=== PATIENT | female | born 1935 | race Caucasian/White ===

== ENCOUNTER 2017-08-27 11:24 | Observation (INO) ==
[2017-08-27] MEDS ORDERED: IOPAMIDOL 100 ML BOTTLE IV ONE (11:25)
--- NOTE | 2017-08-27 12:06 | Emergency Department Note ---
SOB HPI - General Chief Complaint: Shortness of Breath/Dyspnea Stated Complaint: cough, labored breathing Time Seen by Provider: 08/27/17 12:02 Source: patient, family Mode of arrival: wheelchair Limitations: no limitations - History of Present Illness This very pleasant 81-year-old female comes to the ER with upper respiratory symptoms, shortness of breath and decreased energy. She had onset of sinus nasal and chest viral type of symptoms beginning 4 days ago but was worse 3 days ago and she has been in bed since then. She describes severe fatigue just walking across the room but she is not sure if it specifically shortness of breath. She has a remote history, one year ago of some form of lung condition or disease with little nodules. She was seen at [facility] and a biopsy was done which ruled out sarcoidosis and cancer and is was thought that she had a type of an infection for which she was given antibiotic for at least a few months and then prednisone for 3 months. She denies fevers but has felt some hot and cold chills but no specific sweats. Her cough has been quite bad and occasional rare wheeze with some phlegm but she has not looked at the color of the phlegm. She has a history of chronic A. fib anticoagulated with a full dose of aspirin daily only. This has been long-term. - Related Data Home Medications Medication Instructions Recorded Confirmed Aspirin [Ecotrin] 325 mg PO DAILY 12/10/14 01/29/17 cholecalciferol (vitamin D3) 1,000 1,000 unit PO QDAY cap 11/15/15 01/29/17 unit capsule magnesium oxide 400 mg capsule 400 mg PO QDAY 11/15/15 01/29/17 sennosides 8.6 mg tablet 8.6 mg PO QDAY PRN tab 11/15/15 01/29/17 Previous Rx's Medication Instructions Recorded omeprazole 20 mg capsule,delayed 20 mg PO QDAY 90 Days #90 cap 07/25/16 release metoprolol succinate ER 25 mg See Label Instructions .ROUTE 08/20/16 tablet,extended release 24 hr .COMPLEX #270 tab tolterodine ER 4 mg 4 mg PO BID 14 Days #28 cap 12/13/16 capsule,extended release 24 hr Sulfamethoxazole/Trimethoprim 1 each PO BID #14 tab 01/29/17 [Bactrim Ds Tablet] Cephalexin [Keflex] 500 mg PO BID #10 cap 11/16/17 Furosemide [Lasix] 20 mg PO DAILY #20 tab 02/28/17 Potassium Chloride [Kdur] 20 meq PO BIDCC #40 tab 02/28/17 Allergies Allergy/AdvReac Type Severity Reaction Status Date / Time amlodipine [From Norvasc] Allergy Unknown Unknown Verified 08/27/17 11:31 atorvastatin [From Lipitor] Allergy Unknown Cough Verified 08/27/17 11:31 dabigatran etexilate Allergy Unknown Gastrointestinal Verified 08/27/17 11:31 [From Pradaxa] Upset isosorbide [From Imdur] Allergy Unknown Dizziness Verified 08/27/17 11:31 lovastatin [From Mevacor] Allergy Unknown Unknown Verified 08/27/17 11:31 simvastatin [From Zocor] Allergy Unknown Unknown Verified 08/27/17 11:31 Review of Systems Review of Systems: Some almost chest discomfort with activity. No new palpitations. No abdominal pain, nausea, vomiting constipation or hematochezia. Had a few episodes of diarrhea for about a half a day beginning 2 days ago. No dysuria. No back pain. No rashes. Headache for a couple of days. Has generalized weakness. No dizziness. Has chronic imbalance. Recent anxiety and stressors related to her 's diagnosis of a glioblastoma just 4 days ago. Denies depression specific type of symptoms. Past Medical History - Past Medical History Medical history: Reports: atrial fibrillation (Chronic, on 1 full dose aspirin daily), cancer (Breast cancer. 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 Peripheral neuropathy.). Denies: coronary artery disease, CVA, DM, hypertension, myocardial infarction, TIA Psychiatric history: Reports: anxiety (New, acute related to 's health.) . Denies: depression [employer] history: Reports: non-contributory Surgical history ED: Reports: cataract (Bilateral.), orthopedic, other (Neck surgery. Back fusion L4-5.), other (Lung biopsy.) LMP comments: post menopausal - Social History smoking status: Never smoker Alcohol use: Reports: Rarely (May be a Supriya once a quarter at the most.) Drug use: Reports: none. Denies: marijuana Physical Exam Limitations: no limitations General appearance: alert, in no apparent distress, malaise Eye: Present: EOMI (Mild.), other (Mostly rests and talks with her eyes closed.) ENT: mucous membranes moist, nasal congestion (Very mild nasal tones.), hoarse voice (Very mild) Neck: Absent: lymphadenopathy, thyromegaly Respiratory: Present: normal lung sounds bilaterally, other (Occasional harsh medium to deep cough.). Absent: respiratory distress, wheezes, stridor, accessory muscle use, prolonged expiratory phase Cardiovascular: Present: irregular rhythm. Absent: bradycardia, tachycardia, systolic murmur, diastolic murmur Abdominal: Present: soft. Absent: distention, tenderness, guarding, rebound, tenderness at [place], mass Extremities: Present: tenderness (Anterior lower [place] area bilaterally.), pretibial edema (Trace bilaterally.). Absent: pedal edema, calf tenderness Back: Absent: tenderness, CVA tenderness (R), CVA tenderness (L), spinous process tenderness Neurological: Present: alert, oriented X3 Psychiatric: Present: flat affect (Mildly.) Skin: Present: warm, dry Course Course Narrative: 11:47 AM Probable mild URI/bronchitis type of the pattern but with some significant symptoms will need to do a fairly thorough workup. Could also be exacerbated by the stress of her recent 's diagnosis of a significant brain cancer. 1:40 PM labs include a normal troponin. Interesting bilirubin of 2.6 with mildly elevated liver function tests at 52 and 46. Alk phos trace elevated also at 133. Pro-calcitonin negative. D-dimer interestingly elevated at 1.17. White count elevated at 14.1 but no anemia. This does appear to include a left shift. CRP mildly elevated at 11.4. ProBNP markedly elevated at 4084 ECG similar to previous except for mild or subtle flattening of the T waves in the aVL V5 and V6 and I. With the elevated d-dimer on the background of bedrest will go ahead and do a CT angiogram of her chest. Vital Signs Temperature 97.6 F 08/27/17 11:26 Pulse Rate 82 08/27/17 11:26 Respiratory Rate 24 H 08/27/17 11:26 Blood Pressure 133/73 08/27/17 11:26 Pulse Oximetry (%) 97 08/27/17 11:26 Temperature 97.6 F 08/27/17 11:26 Pulse Rate 83 08/27/17 16:30 Respiratory Rate 21 08/27/17 16:30 Blood Pressure 132/80 08/27/17 16:30 Pulse Oximetry (%) 100 08/27/17 16:30 Shortness of Breath/Dyspnea - [facility] Narrative Medical decision making narrative: Patient had a 4 hour repeat troponin that was negative. Ultrasound because of her elevated liver function test did not demonstrate any acute findings. There was mild gallbladder wall thickening and a nonobstructing stone but no other specific findings. I have discussed case with Dr. Raymond with considerations for diuresis, arrangement for diagnosis or follow-up of sleep apnea, echocardiogram, etc. He kindly accepted care for patient's admission. Urine was mildly positive and patient was given 1 g of ceftriaxone. She could have simply some chronic underlying processes such as sleep apnea causing right heart failure and a recent viral syndrome. However, combination of the multiple diagnoses and findings puts her at risk of decompensation and significant other medical complicating concerns and it is best for at least a brief period of observation and treatment. - Lab Data Result diagrams: 08/27/17 12:12 08/27/17 12:11 Lab Results 08/27/17 08/27/17 08/27/17 Range/Units 12:04 12:11 12:11 WBC (4.5-11.0) K/mcL RBC (4.00-5.20) M/mcL Hgb (12.0-15.0) g/dL Hct (36.0-48.0) % MCV (80.0-100.0) fL MCH (26.0-34.0) pg MCHC (31.0-36.0) g/dL RDW (11.5-14.5) % Plt Count (140-440) K/mcL MPV (7.4-10.4) fL Gran % (38.0-78.0) % Lymph % (Auto) (15.5-49.0) % Stevens % (Auto) (1.0-12.0) % Eos % (Auto) (0.0-7.0) % Baso % (Auto) (0.0-2.0) % Gran # (1.8-8.0) K/mcL Lymph # (Auto) (1.5-4.8) K/mcL Stevens # (Auto) (0.1-0.9) K/mcL Eos # (Auto) (0.0-0.7) K/mcL Baso # (Auto) (0.0-0.3) K/mcL PT (11.9-14.5) sec INR (0.9-1.1) D-Dimer (0.00-0.40) ug/ml Sodium 137 (133-145) mmol/L Potassium 4.3 (3.3-5.1) mmol/L Chloride 102 (96-108) mmol/L Carbon Dioxide 22 (22-30) mmol/L Anion Gap 13.0 (8-16) BUN 22 (8-23) mg/dl Creatinine 1.0 (0.6-1.1) mg/dl GFR Calculation 53 Glucose 107 H (70-105) mg/dL Calcium 9.0 (8.6-10.4) mg/dl Total Bilirubin 2.6 H (0.0-1.0) mg/dL AST 52 H (0-37) U/l ALT 46 H (0-40) U/l Alkaline Phosphatase 133 H (39-117) U/L Troponin T < 0.01 (0-0.03) ng/ml C-Reactive Protein 11.4 H (0.0-0.8) mg/dl NT-Pro-B Natriuret Pep 4084.0 H (0-450) pg/ml Total Protein 6.9 (5.9-8.4) gm/dL Albumin 3.8 (3.2-5.2) gm/dL Globulin 3.1 (2.2-3.7) gm/dL Albumin/Globulin Ratio 1.2 (1.0-2.3) Procalcitonin 0.10 (<0.10) ng/mL Urine Color Urine Appearance Urine pH (5.0-9.0) Ur Specific Distant (1.000-1.035) Urine Protein (NEG) mg/dL Urine Glucose (UA) (NEG) mg/dL Urine Ketones (NEG) mg/dL Urine Occult Blood (<0.03) mg/dL Urine Nitrate (NEG) Urine Bilirubin (NEG) mg/dL Urine Urobilinogen (NEG) mg/dL Ur Leukocyte Esterase (NEG) /uL Urine RBC (0-1) /hpf Urine WBC (0-4) /hpf Ur Squamous Epith Cells (0-4) /hpf Urine Bacteria (0) /hpf Ur Culture Indicated? 08/27/17 08/27/17 08/27/17 Range/Units 12:12 12:12 13:30 WBC 14.1 H (4.5-11.0) K/mcL RBC 4.39 (4.00-5.20) M/mcL Hgb 13.6 (12.0-15.0) g/dL Hct 41.0 (36.0-48.0) % MCV 93.4 (80.0-100.0) fL MCH 30.9 (26.0-34.0) pg MCHC 33.0 (31.0-36.0) g/dL RDW 16.0 H (11.5-14.5) % Plt Count 173 (140-440) K/mcL MPV 10.4 (7.4-10.4) fL Gran % 66.7 (38.0-78.0) % Lymph % (Auto) 22.9 (15.5-49.0) % Stevens % (Auto) 8.9 (1.0-12.0) % Eos % (Auto) 1.1 (0.0-7.0) % Baso % (Auto) 0.4 (0.0-2.0) % Gran # 9.4 H (1.8-8.0) K/mcL Lymph # (Auto) 3.2 (1.5-4.8) K/mcL Stevens # (Auto) 1.3 H (0.1-0.9) K/mcL Eos # (Auto) 0.1 (0.0-0.7) K/mcL Baso # (Auto) 0.1 (0.0-0.3) K/mcL PT 14.7 H (11.9-14.5) sec INR 1.1 (0.9-1.1) D-Dimer 1.17 H (0.00-0.40) ug/ml Sodium (133-145) mmol/L Potassium (3.3-5.1) mmol/L Chloride (96-108) mmol/L Carbon Dioxide (22-30) mmol/L Anion Gap (8-16) BUN (8-23) mg/dl Creatinine (0.6-1.1) mg/dl GFR Calculation Glucose (70-105) mg/dL Calcium (8.6-10.4) mg/dl Total Bilirubin (0.0-1.0) mg/dL AST (0-37) U/l ALT (0-40) U/l Alkaline Phosphatase (39-117) U/L Troponin T (0-0.03) ng/ml C-Reactive Protein (0.0-0.8) mg/dl NT-Pro-B Natriuret Pep (0-450) pg/ml Total Protein (5.9-8.4) gm/dL Albumin (3.2-5.2) gm/dL Globulin (2.2-3.7) gm/dL Albumin/Globulin Ratio (1.0-2.3) Procalcitonin (<0.10) ng/mL Urine Color Yellow Urine Appearance Clear Urine pH 6.0 (5.0-9.0) Ur Specific Distant 1.017 (1.000-1.035) Urine Protein 30 A (NEG) mg/dL Urine Glucose (UA) Negative (NEG) mg/dL Urine Ketones Neg (NEG) mg/dL Urine Occult Blood Neg (<0.03) mg/dL Urine Nitrate Neg (NEG) Urine Bilirubin Neg (NEG) mg/dL Urine Urobilinogen 4.0 A (NEG) mg/dL Ur Leukocyte Esterase 25 A (NEG) /uL Urine RBC 1 (0-1) /hpf Urine WBC 14 H (0-4) /hpf Ur Squamous Epith Cells 1 (0-4) /hpf Urine Bacteria 0 (0) /hpf Ur Culture Indicated? Yes 08/27/17 Range/Units 16:10 WBC (4.5-11.0) K/mcL RBC (4.00-5.20) M/mcL Hgb (12.0-15.0) g/dL Hct (36.0-48.0) % MCV (80.0-100.0) fL MCH (26.0-34.0) pg MCHC (31.0-36.0) g/dL RDW (11.5-14.5) % Plt Count (140-440) K/mcL MPV (7.4-10.4) fL Gran % (38.0-78.0) % Lymph % (Auto) (15.5-49.0) % Stevens % (Auto) (1.0-12.0) % Eos % (Auto) (0.0-7.0) % Baso % (Auto) (0.0-2.0) % Gran # (1.8-8.0) K/mcL Lymph # (Auto) (1.5-4.8) K/mcL Stevens # (Auto) (0.1-0.9) K/mcL Eos # (Auto) (0.0-0.7) K/mcL Baso # (Auto) (0.0-0.3) K/mcL PT (11.9-14.5) sec INR (0.9-1.1) D-Dimer (0.00-0.40) ug/ml Sodium (133-145) mmol/L Potassium (3.3-5.1) mmol/L Chloride (96-108) mmol/L Carbon Dioxide (22-30) mmol/L Anion Gap (8-16) BUN (8-23) mg/dl Creatinine (0.6-1.1) mg/dl GFR Calculation Glucose (70-105) mg/dL Calcium (8.6-10.4) mg/dl Total Bilirubin (0.0-1.0) mg/dL AST (0-37) U/l ALT (0-40) U/l Alkaline Phosphatase (39-117) U/L Troponin T < 0.01 (0-0.03) ng/ml C-Reactive Protein (0.0-0.8) mg/dl NT-Pro-B Natriuret Pep (0-450) pg/ml Total Protein (5.9-8.4) gm/dL Albumin (3.2-5.2) gm/dL Globulin (2.2-3.7) gm/dL Albumin/Globulin Ratio (1.0-2.3) Procalcitonin (<0.10) ng/mL Urine Color Urine Appearance Urine pH (5.0-9.0) Ur Specific Distant (1.000-1.035) Urine Protein (NEG) mg/dL Urine Glucose (UA) (NEG) mg/dL Urine Ketones (NEG) mg/dL Urine Occult Blood (<0.03) mg/dL Urine Nitrate (NEG) Urine Bilirubin (NEG) mg/dL Urine Urobilinogen (NEG) mg/dL Ur Leukocyte Esterase (NEG) /uL Urine RBC (0-1) /hpf Urine WBC (0-4) /hpf Ur Squamous Epith Cells (0-4) /hpf Urine Bacteria (0) /hpf Ur Culture Indicated? Disposition Pt seen by [facility]/PA only: No Clinical Impression: Shortness of breath, Elevated brain natriuretic peptide (BNP) level, Elevated d -dimer, Elevated LFTs, Elevated C-reactive protein (CRP), Abnormal chest CT, Abnormal ECG Right heart failure Qualifiers: Heart failure chronicity: unspecified Qualified Code(s): I50.810 - Right heart failure, unspecified Elevated WBC count Qualifiers: Leukocytosis type: unspecified Qualified Code(s): D72.829 - Elevated white blood cell count, unspecified URI (upper respiratory infection) Qualifiers: URI type: unspecified viral URI Qualified Code(s): J06.9 - Acute upper respiratory infection, unspecified UTI (urinary tract infection) Qualifiers: Urinary tract infection type: acute cystitis Hematuria presence: without hematuria Qualified Code(s): N30.00 - Acute cystitis without hematuria Disposition: Xfer As Inpt ([facility]) Condition: Fair Referrals: Caitlyn Trivedi MD [Primary Care Provider] -
--- NOTE | 2017-08-27 12:31 | XRay Report ---
INDICATION: Dyspnea. Upper respiratory infection TECHNIQUE: PA and lateral upright chest x-ray COMPARISON: Chest x-rays dated February 28, 2017 and May 10, 2016 FINDINGS:No acute or focal pulmonary parenchymal infiltrate. No pulmonary parenchymal mass. Moderate cardiomegaly. No pulmonary congestion or pulmonary edema. No acute abnormality. No significant interval change. IMPRESSION: 1. Moderate cardiomegaly. 2. No focal pulmonary parenchymal infiltrate. No interval change Interpreted and Authenticated by: Sergei Martínez 08/27/17
--- NOTE | 2017-08-27 14:44 | Cat Scan Report ---
CLINICAL INFORMATION: Dyspnea. Elevated d-dimer. COMPARISON: Previous chest x-ray dated August 27, 2017. Previous CT scan dated May 16, 2016 TECHNIQUE: Axial images obtained through the chest. 80 mL intravenous contrast was administered, and scanning was performed during pulmonary arterial phase. Sagittally and coronally reformatted images were obtained. MIP reformatted images. FINDINGS: Main pulmonary artery, right pulmonary artery, left pulmonary artery are negative. No lobar, segmental, or subsegmental abnormalities. Negative examination for pulmonary embolism. There is biatrial cardiac enlargement. There is prominent reflux of contrast material into the inferior vena cava and hepatic veins. Appearance suggests right heart failure. No pericardial fluid. No pleural fluid. No pulmonary parenchymal infiltrate. No honeycombing. No significant bronchiectasis. There are nonspecific reticular changes at both lung bases. There is a 7 mm right upper lobe nodule, image 58. There is a 4 mm right lower lobe nodule, image 75. 6-12 month and 18-[address] follow-up recommended. No pathologic hilar or mediastinal lymphadenopathy. No axillary adenopathy. No supraclavicular adenopathy. Upper abdomen is negative. There is ossification of the anterior longitudinal ligament. At T6-7 there is a fracture of the anterior longitudinal ligament consistent with pseudoarthrosis. Findings suggest ankylosing spondylitis in this pseudoarthrosis is a new finding since May 16, 2016. IMPRESSION: 1. Negative pulmonary CTA. No pulmonary embolism 2. Biatrial cardiac enlargement with findings consistent with right heart failure 3. Nonspecific noncalcified pulmonary parenchymal nodules 4. 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 Interpreted and Authenticated by: Sergei Martínez 08/27/17
[2017-08-27 15:50] LABS: ALT/SGPT 46 U/l (0-40); Albumin 3.8 gm/dL (3.2-5.2); Albumin/Globulin Ratio 1.2 (1.0-2.3); Alkaline Phosphatase 133 U/L (39-117); Blood Urea Nitrogen 22 mg/dl (8-23); C-Reactive Protein 11.4 mg/dl (0.0-0.8)
[2017-08-27 15:50] LABS: Basophils # (Auto) 0.1 K/mcL (0.0-0.3); Basophils % (Auto) 0.4 % (0.0-2.0); Eosinophils # (Auto) 0.1 K/mcL (0.0-0.7); Eosinophils % (Auto) 1.1 % (0.0-7.0); Granulocytes % (Auto) 66.7 % (38.0-78.0); Lymphocytes # (Auto) 3.2 K/mcL (1.5-4.8); Lymphocytes % (Auto) 22.9 % (15.5-49.0); Mean Cell Volume 93.4 fL (80.0-100.0); Mean Corpuscular Hemoglobin 30.9 pg (26.0-34.0); Monocytes # (Auto) 1.3 K/mcL (0.1-0.9); Monocytes % (Auto) 8.9 % (1.0-12.0); Platelet Count 173 K/mcL (140-440); RBC 4.39 M/mcL (4.00-5.20)
[2017-08-27 16:22] LABS: Appearance,Urine CLEAR; Bacteria,Urine 0 /hpf (0); Bilirubin,Urine NEG (NEG); Color,Urine YELLOW; Glucose,Urine (UA) NEGATIVE (NEG); Leukocyte Esterase,Urine 25 /uL (NEG); Protein,Urine 30 mg/dL (NEG); Specific Gravity,Urine 1.017 (1.000-1.035); Urine Blood NEG mg/dL (<0.03); Urine RBC 1 /hpf (0-1); Urine Squamous Epithelial Cell 1 /hpf (0-4); Urine WBC 14 /hpf (0-4)
[2017-08-27] MEDS ORDERED: cefTRIAXone 1 GM VIAL IV ONE (16:25)
--- NOTE | 2017-08-27 17:54 | Ultrasound Report ---
CLINICAL INFORMATION: Abdominal pain. Elevated liver function test. TECHNIQUE: Grayscale and color flow Doppler spectral imaging COMPARISON: Chest CT scan dated August 27, 2017 FINDINGS: Single gallstone measures 2.5 cm maximally. This is in the dependent portion of the gallbladder appears to be mobile. Gallbladder wall measures 3 mm in thickness. This is at the upper limits of normal. No pericholecystic fluid. Patient was mildly tender when scanned over the gallbladder. Common bile duct measures 5 mm. No intrahepatic bile duct dilatation. Only a small portion of the common bile duct is visualized. Liver appears echogenic. This may be due to congestion from right heart failure. Liver contour is smooth. No ascites. No discrete hepatic mass. Portal venous flow is documented but it is bidirectional. No portal venous thrombosis Visualized portions of the pancreas are negative. IMPRESSION: 1. Single mobile gallstone. Borderline gallbladder wall thickening 2. Somewhat echogenic liver may be due to hepatic congestion from right heart failure Interpreted and Authenticated by: Sergei Martínez 08/27/17
--- NOTE | 2017-08-27 18:43 | Internal Med History&Physical ---
Medical - H&P: HPI Patient information: Note initiated : 08/27/17 at 6:40 pm Service Date, if different from initiated Date: [] Patient: China Ch a 81 y/o F admitted on for cough, labored breathing. Chief Complaint: [] History of present illness: Ms. Ch is a 81 year old Female with h/o steroid responsive ILD, CmL, presents to the emergency room for evaluation of fatigue weakness shortness of breath of exertion as well as cough that has been going on for the last 4 days. The patient recently came from a trip in [place] and was doing well then. Since Saturday she has noticed that she has been having cough with whitish expectoration, subjective sensations of chills but no fevers. She also has noticed she has generalized aches malaise. She is very tired and fatigued. The patient's symptoms have progressively gotten worse. She is short of breath on minimal activity. Since her symptoms have not improved the patient presented to the emergency room for further evaluation. The patient notes that her symptoms are somewhat similar to the symptoms she had when she was diagnosed with interstitial lung disease a few years ago. She was followed by the doctor in [place] for her condition and she was given about her steroids at that time. The patient denies any other complaints. She has no headache no dizziness no changes in vision no difficulty in swallowing, no nausea no vomiting no abdominal pain no urinary complaints. In the emergency room she was worked up. Her vital signs were stable She had leukocytosis with WBC count of 14,000, hemoglobin 13.6, platelets 113, platelets was stable. Her d-dimer was mildly elevated at 1.17. UA suggestive of possible UTI with positive leukocyte esterase and some WBCs. It is liver function tests were abnormal patient had elevated bilirubin and AST ALT as well as alkaline phosphatase. Had a chest x-ray which was reported as negative for CHF or pneumonia. The patient underwent a CT angiogram which was negative for PE, she had few diffuse lung nodules, basilar atelectasis, the CT scan also showed that the patient might have some right-sided CHF. Abnormal LFTs the patient underwent abdominal liver ultrasound, showed mildly thickened gallbladder a mobile stone and possible passive congestive hepatomegaly. Patient did not have any minor lower extremities. Even her symptoms are worsening for the last 4 days, she having worsening shortness of breath on exertion, leukocytosis the patient was admitted to the hospital for further management. 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 All systems: reviewed and no additional remarkable complaints except as stated ( 10 point ROS done negative except as mentioned in the HPI) Medical - H&P: [facility] Medical history: Medical History (Last Reviewed 12/13/16 @ 10:02 by Emily Maxwell RN) Macular degeneration (Chronic) Hypertonicity of bladder (Chronic) Acute exacerbation of chronic low back pain (Chronic) Pain of right scapula (Acute) Scapulalgia (Acute) Vertigo (Chronic) Osteoporosis screening (Chronic) Chronic myeloid leukemia (Chronic) Tear of medial meniscus of knee, current (Chronic) Hyperlipidemia (Chronic) Hiatal hernia (Chronic) Herpes zoster (Chronic) Nontoxic multinodular goiter (Chronic) Gastritis (Chronic) Gallstones without obstruction of gallbladder (Chronic) Esophageal disorder (Chronic) Diverticulosis of colon (Chronic) Degenerative arthritis (Chronic) Chest pain (Chronic) Breast cancer (Chronic) Atrial fibrillation (Chronic) Paronychia (Chronic) Muscle ache (Chronic) General response of interstitial lung disease Surgical history: Medical History (Last Reviewed 12/13/16 @ 10:02 by Emily Maxwell RN) Past Surgical History (Last Reviewed 12/13/16 @ 10:02 by Emily Maxwell RN) History of rectocele (Chronic) History of radiation therapy (Chronic) History of surgery (Chronic) History of lumpectomy of left breast (Chronic) History of total knee arthroplasty (Chronic) History of hysterectomy (Chronic) History of cardiac cath (Chronic) History of esophagogastroduodenoscopy (Chronic 03/02/11) History of colonoscopy (Chronic) History of bone marrow transplant (Chronic) History of arthroplasty (Chronic) Family history: reviewed and not pertinent Medical - H&P: Meds Home Medications Medication Instructions Recorded Confirmed Type Aspirin [Ecotrin] 325 mg PO DAILY 12/10/14 01/29/17 History cholecalciferol (vitamin D3) 1,000 1,000 unit PO QDAY cap 11/15/15 01/29/17 History unit capsule magnesium oxide 400 mg capsule 400 mg PO QDAY 11/15/15 01/29/17 History sennosides 8.6 mg tablet 8.6 mg PO QDAY PRN tab 11/15/15 01/29/17 History omeprazole 20 mg capsule,delayed 20 mg PO QDAY 90 Days #90 cap 07/25/16 Rx release metoprolol succinate ER 25 mg See Label Instructions .ROUTE 08/20/16 01/29/17 Rx tablet,extended release 24 hr .COMPLEX #270 tab tolterodine ER 4 mg 4 mg PO BID 14 Days #28 cap 12/13/16 01/29/17 Rx capsule,extended release 24 hr Sulfamethoxazole/Trimethoprim 1 each PO BID #14 tab 01/29/17 Rx [Bactrim Ds Tablet] Cephalexin [Keflex] 500 mg PO BID #10 cap 02/28/17 Rx Furosemide [Lasix] 20 mg PO DAILY #20 tab 02/28/17 Rx Potassium Chloride [Kdur] 20 meq PO BIDCC #40 tab 02/28/17 Rx Allergies Allergy/AdvReac Type Severity Reaction Status Date / Time amlodipine [From Norvasc] Allergy Unknown Unknown Verified 08/27/17 11:31 atorvastatin [From Lipitor] Allergy Unknown Cough Verified 08/27/17 11:31 dabigatran etexilate Allergy Unknown Gastrointestinal Verified 08/27/17 11:31 [From Pradaxa] Upset isosorbide [From Imdur] Allergy Unknown Dizziness Verified 08/27/17 11:31 lovastatin [From Mevacor] Allergy Unknown Unknown Verified 08/27/17 11:31 simvastatin [From Zocor] Allergy Unknown Unknown Verified 08/27/17 11:31 Medical - H&P: Exam - Constitutional Vitals: Temp Pulse Resp BP Pulse Ox 97.6 F 94 H 14 120/70 98 08/27/17 11:26 08/27/17 17:43 08/27/17 17:43 08/27/17 17:31 08/27/17 17:43 Exam: GENERAL: The patient is a well-developed, well-nourished in no apparent distress. Is alert and oriented x3. VITAL SIGNS: Reviewed and as noted elsewhere. HEENT: Head is normocephalic and atraumatic. Extraocular muscles are intact. Pupils are equal, round, and reactive to light. Nares appeared normal. Mouth appears any without lesions. Mucous membranes are dry NECK: Normal to inspection, Supple, No lymphadenopathy or thyromegaly. LUNGS: Air entry equal on both sides, no wheezing, crackles or rhonchi noted. No accessory muscles of respiration HEART: Regular rate and rhythm normal, S1 and S2 heard, no Gallop, S3 or Rub Noted, No Gross murmur heard. ABDOMEN: Soft, nontender, and nondistended. Positive bowel sounds. No hepatosplenomegaly was noted. EXTREMITIES: No cyanosis, clubbing, rash, lesions or edema. NEUROLOGIC: Cranial nerves II through XII are grossly intact. Motor and Sensory System Grossly Intact PSYCHIATRIC: Normal affect, Normal Mood. Appropriate Behavior. SKIN: No ulceration or wounds noted, No jaundice, No rash noted. Medical - H&P: Reslt - Labs CBC & Chem 7: 08/27/17 12:12 08/27/17 12:11 Labs: Short CBC 08/27/17 Range/Units 12:12 WBC 14.1 H (4.5-11.0) K/mcL Hgb 13.6 (12.0-15.0) g/dL Hct 41.0 (36.0-48.0) % Plt Count 173 (140-440) K/mcL BMP 08/27/17 12:11 Sodium 137 Potassium 4.3 Chloride 102 Carbon Dioxide 22 BUN 22 Creatinine 1.0 Glucose 107 H Calcium 9.0 Cardiac Enzymes 08/27/17 08/27/17 Range/Units 12:04 16:10 Troponin T < 0.01 < 0.01 (0-0.03) ng/ml Liver Function 08/27/17 Range/Units 12:11 Total Bilirubin 2.6 H (0.0-1.0) mg/dL AST 52 H (0-37) U/l ALT 46 H (0-40) U/l Alkaline Phosphatase 133 H (39-117) U/L Albumin 3.8 (3.2-5.2) gm/dL Urine 08/27/17 Range/Units 13:30 Urine Color Yellow Urine Appearance Clear Urine pH 6.0 (5.0-9.0) Ur Specific [place] 1.017 (1.000-1.035) Urine Protein 30 A (NEG) mg/dL Urine Glucose (UA) Negative (NEG) mg/dL Medical - H&P: A/P - Narrative A/P Narrative: A/P Acute viral/ Bacterial bronchitis: Most likely etiology for patient's symptoms, she has a recent history of travel in crowded places, has cough and symptoms suggestive of viral infection. Given that her symptoms have not improved we will treat her with the Azithromycin and steroid and see if this helps. I will also give her some nebulizers to see if it helps her breathing. Urinary tract infection-patient does not have symptoms suggestive of UTI however UA was abnormal, and given increased fatigue will cover with Rocephin. Shortness of breath-likely related to viral syndrome, however given her history of ILD, presence of some lung nodules, it might be worthwhile to have her see her oenologist again if her symptoms do not resolve with a short course of steroids and Zithromax. [place] pressures on the right side secondary to right- sided heart failure as noted on the CT scan. BNP is elevated(chronically elevated however at this time is slightly more than before), I will give her IV Lasix 20 mg and see if this helps. Get an echocardiogram. She is at high risk for developing pulmonary hypertension and cor pulmonale secondary to her history of interstitial lung disease, and high suspicion of obstructive sleep apnea Right-sided heart failure-see above Chronic myeloid leukemia-patient has leukocytosis WBC count is 14 however on trending a WBC it is noted that she always has had some elevation in her WBC count. Monitor for now follow-up as outpatient with her PCp/oncologist Elevated LFT: usg neg, infiltrative pattern vs passive congestion, will monitor for now. Resume home meds as appropriate for chr medical conditions DVT hep sq Diet regular Full code. Social History - Social History household members: spouse housing: house marital status: occupational status: retired - Tobacco smoking status: Never smoker - Alcohol alcohol intake frequency: holiday/special occasion only - Substance use substance use type: does not use
[2017-08-27] MEDS ORDERED: FUROSEMIDE 20 MG/2 ML VIAL IV ONE (20:12)
[2017-08-27] MEDS ORDERED: NALOXONE HCL 0.4 MG/ML VIAL IV PRN (20:12)
[2017-08-27] MEDS ORDERED: predniSONE 20 MG TABLET PO ONE (20:12)
[2017-08-27] MEDS ORDERED: AZITHROMYCIN 250 MG TABLET PO ONE (20:12)
[2017-08-27] MEDS ORDERED: ACETAMINOPHEN 325 MG TABLET PO PRN (20:12)
[2017-08-27] MEDS ORDERED: oxyCODONE HCL 5 MG TABLET PO PRN (20:12)
[2017-08-27] MEDS ORDERED: cefTRIAXone 1 GM in DEXTROSE 5% IN WATER 50 ML IV SCH (20:12)
[2017-08-27] MEDS ORDERED: ONDANSETRON 4 MG/2 ML VIAL IV PRN (20:12)
[2017-08-27] MEDS: HEPARIN 5,000 UNIT/ML VIAL SQ SCH (21:42)
[2017-08-27] MEDS: GABAPENTIN 300 MG CAPSULE PO SCH (21:43)
[2017-08-27] MEDS: IPRATROPIUM/ALBUTEROL 3 ML AMPUL.NEB NEB SCH (21:44)
[2017-08-27] MEDS: METOPROLOL TARTRATE 25 MG TABLET PO SCH (21:44)
[2017-08-27] MEDS: 0.9 % SODIUM CHLORIDE 10 ML SYRINGE IV SCH (21:44)
[2017-08-28] MEDS: IPRATROPIUM/ALBUTEROL 3 ML AMPUL.NEB NEB SCH ×4 (00:47→19:04)
[2017-08-28 05:25] LABS: Basophils # (Auto) 0 K/mcL (0.0-0.3); Basophils % (Auto) 0.1 % (0.0-2.0); Eosinophils # (Auto) 0 K/mcL (0.0-0.7); Eosinophils % (Auto) 0.1 % (0.0-7.0); Granulocytes % (Auto) 91.7 % (38.0-78.0); Lymphocytes # (Auto) 0.7 K/mcL (1.5-4.8); Lymphocytes % (Auto) 5.2 % (15.5-49.0); Mean Cell Volume 94.5 fL (80.0-100.0); Mean Corpuscular HGB Conc 32.6 g/dL (31.0-36.0); Mean Corpuscular Hemoglobin 30.8 pg (26.0-34.0); Monocytes # (Auto) 0.4 K/mcL (0.1-0.9); Monocytes % (Auto) 2.9 % (1.0-12.0); Platelet Count 184 K/mcL (140-440); RBC 4.29 M/mcL (4.00-5.20); Red Cell Distribution Width 15.8 % (11.5-14.5)
[2017-08-28 06:09] LABS: ALT/SGPT 39 U/l (0-40); Albumin 3.7 gm/dL (3.2-5.2); Albumin/Globulin Ratio 1.1 (1.0-2.3); Alkaline Phosphatase 141 U/L (39-117); Bilirubin,Direct 0.5 mg/dL (0.0-0.3); Blood Urea Nitrogen 20 mg/dl (8-23); Gamma Glutamyl Transpeptidase 155 U/L (5-36); Uric Acid 7.3 mg/dL (2.5-8.0)
[2017-08-28] MEDS: 0.9 % SODIUM CHLORIDE 10 ML SYRINGE IV SCH ×3 (07:01→21:31)
[2017-08-28] MEDS: METOPROLOL TARTRATE 25 MG TABLET PO SCH ×2 (09:00→21:29)
[2017-08-28] MEDS: VITAMIN D3 1,000 UNIT TABLET PO SCH (09:00)
[2017-08-28] MEDS: MAGNESIUM OXIDE 400 MG TABLET PO SCH (09:00)
[2017-08-28] MEDS: GABAPENTIN 300 MG CAPSULE PO SCH ×2 (09:01→21:29)
[2017-08-28] MEDS: predniSONE 20 MG TABLET PO SCH (09:01)
[2017-08-28] MEDS: AZITHROMYCIN 250 MG TABLET PO SCH (09:01)
[2017-08-28] MEDS: HEPARIN 5,000 UNIT/ML VIAL SQ SCH ×2 (09:02→21:30)
[2017-08-28] MEDS: ASPIRIN 325 MG ENTERIC COATED TABLET PO SCH (09:02)
[2017-08-28] MEDS: FUROSEMIDE 20 MG/2 ML VIAL IV SCH (09:03)
[2017-08-28] MEDS: Mirabegron [Myrbetriq] 25 MG PO SCH (09:04)
[2017-08-28] MEDS: cefTRIAXone 1 GM VIAL IV SCH (09:06)
[2017-08-28] MEDS ORDERED: MAG HYDROX/AL HYDROX/SIMETH 30 ML ORAL.SUSP PO ONE (10:32)
[2017-08-28] MEDS ORDERED: PANTOPRAZOLE 40 MG VIAL IV ONE (10:33)
--- NOTE | 2017-08-28 14:15 | Internal Med Progress Note ---
Medical - PN: Subj Patient information: Note initiated : 08/28/17 at 2:11 pm Service Date, if different from initiated Date: [] Patient: China Ch a 81 y/o F admitted on 08/27/17 for Cough, Labored Breathing/Rt Heart Failure, UTI. Chief Complaint: [] Interval history: Ms. Ch is a 81 year old Female with h/o steroid responsive ILD, CmL, presents to the emergency room for evaluation of fatigue weakness shortness of breath of exertion as well as cough that has been going on for the last 4 days. The patient recently came from a trip in [place] and was doing well then. Since Saturday she has noticed that she has been having cough with whitish expectoration, subjective sensations of chills but no fevers. She also has noticed she has generalized aches malaise. She is very tired and fatigued. The patient's symptoms have progressively gotten worse. She is short of breath on minimal activity. Since her symptoms have not improved the patient presented to the emergency room for further evaluation. The patient notes that her symptoms are somewhat similar to the symptoms she had when she was diagnosed with interstitial lung disease a few years ago. She was followed by the doctor in [place] for her condition and she was given about her steroids at that time. The patient denies any other complaints. She has no headache no dizziness no changes in vision no difficulty in swallowing, no nausea no vomiting no abdominal pain no urinary complaints. In the emergency room she was worked up. Her vital signs were stable She had leukocytosis with WBC count of 14,000, hemoglobin 13.6, platelets 113, platelets was stable. Her d-dimer was mildly elevated at 1.17. UA suggestive of possible UTI with positive leukocyte esterase and some WBCs. It is liver function tests were abnormal patient had elevated bilirubin and AST ALT as well as alkaline phosphatase. Had a chest x-ray which was reported as negative for CHF or pneumonia. The patient underwent a CT angiogram which was negative for PE, she had few diffuse lung nodules, basilar atelectasis, the CT scan also showed that the patient might have some right-sided CHF. Abnormal LFTs the patient underwent abdominal liver ultrasound, showed mildly thickened gallbladder a mobile stone and possible passive congestive hepatomegaly. Patient did not have any minor lower extremities. Even her symptoms are worsening for the last 4 days, she having worsening shortness of breath on exertion, leukocytosis the patient was admitted to the hospital for further management. 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 08/28 Patient seen and examined, no acute overnight events. This morning she was doing well feeling much better compared to yesterday. After some time she developed significant cramping in the left upper quadrant of the abdomen, she notes that she has these cramping due to esophageal spasm intermittently. Last time it was approximately a couple of years ago EGD was done and she was advised to be on Prilosec, since she did not have any episode for around 2 years she had stopped taking the Prilosec. Otherwise patient's cough and breathing is better she has not been able to ambulate well today but notes that the medications we are giving her are helping her. Pertinent ROS: Denies headache, dizziness Denies chest pain, palpitations Denies cough or shortness of breath abdominal cramping. present , nausea or vomiting. - Constitutional Vitals: Vital Signs Temp Pulse Resp BP Pulse Ox 97.9 F 82 18 112/59 96 08/28/17 12:45 08/28/17 12:45 08/28/17 12:45 08/28/17 12:45 08/28/17 12:45 Period Temp Pulse Resp BP Sys/Stanford Pulse Ox Last 24 Hr 97.0 F-98.3 F 48-98 14-25 98-154/49-93 92-100 Intake and Output 08/28/17 08/28/17 08/28/17 05:59 13:59 21:59 Intake Total 250 / 250 240 / 240 Output Total 1600 / 1600 900 / 900 Balance -1350 / -1350 -660 / -660 Intake & Output: Intake & Output 08/28/17 08/28/17 08/28/17 05:59 13:59 21:59 Intake Total 250 / 250 240 / 240 Output Total 1600 / 1600 900 / 900 Balance -1350 / -1350 -660 / -660 Intake: Oral 250 / 250 240 / 240 Output: Void Amount 1600 / 1600 900 / 900 Other: Meal Soup, Jello Breakfast Percent of Meal Consumed 100% 100% Feeding Ability Independent Independent # Voids 1 Exam: Constitutional; Afebrile, cooperative, alert, not in distress. Eyes- No icterus, , No periorbital swelling Ears- Ext ear normal, hearing normal to conversation. Neck- Midline trachea, supple Respiratory system: Air Entry equal on both sides, No crackles or wheezing, no rhonchi. CVS- Rate rhythm regular, S1,S2 heard, no gallop, no rub. Abdomen- Soft nontender abdomen, no organomegaly, no tenderness, no guarding or rigidity, [employer]- AOOx3, moving all extremities, no gross focal deficit noted. Medical - PN: Obj Da - Labs CBC & Chem 7: 08/28/17 04:00 08/28/17 04:00 Labs: Abnormal Lab Results 08/28/17 08/28/17 08/27/17 04:00 04:00 13:30 WBC 13.1 H RDW 15.8 H Gran % 91.7 H Lymph % (Auto) 5.2 L Gran # 12.0 H Lymph # (Auto) 0.7 L [place] # (Auto) PT D-Dimer Glucose 157 H Total Bilirubin 1.6 H Direct Bilirubin 0.5 H GGT 155 H AST ALT Alkaline Phosphatase 141 H Lactate Dehydrogenase 252 H C-Reactive Protein NT-Pro-B Natriuret Pep Urine Protein 30 A Urine Urobilinogen 4.0 A Ur Leukocyte Esterase 25 A Urine WBC 14 H 08/27/17 08/27/17 08/27/17 12:12 12:12 12:11 WBC 14.1 H RDW 16.0 H Gran % Lymph % (Auto) Gran # 9.4 H Lymph # (Auto) [place] # (Auto) 1.3 H PT 14.7 H D-Dimer 1.17 H Glucose 107 H Total Bilirubin 2.6 H Direct Bilirubin GGT AST 52 H ALT 46 H Alkaline Phosphatase 133 H Lactate Dehydrogenase C-Reactive Protein 11.4 H NT-Pro-B Natriuret Pep 4084.0 H Urine Protein Urine Urobilinogen Ur Leukocyte Esterase Urine WBC Meds: Medications Acetaminophen (Tylenol) 650 mg PO Q6HP PRN PRN Reason: PAIN/FEVER > 101 Albuterol/Ipratropium (Duoneb) 3 ml NEB Q6HRT [facility] Last Admin: 08/28/17 13:37 Dose: Not Given Aspirin (Ecotrin) 325 mg PO DAILY [facility] Last Admin: 08/28/17 09:02 Dose: 325 mg Azithromycin (Zithromax) 250 mg PO DAILY [facility] Stop: 08/31/17 09:01 Last Admin: 08/28/17 09:01 Dose: 250 mg Ceftriaxone Sodium (Rocephin) 1 gm IV Q24H [facility] Last Admin: 08/28/17 09:06 Dose: 1 gm Furosemide (Lasix) 20 mg IV DAILY [facility] Last Admin: 08/28/17 09:03 Dose: 20 mg Gabapentin (Neurontin) 600 mg PO Q12 [facility] Last Admin: 08/28/17 09:01 Dose: 600 mg Heparin Sodium (Porcine) (Heparin) 5,000 unit SQ Q12 [facility] Last Admin: 08/28/17 09:02 Dose: 5,000 unit Magnesium Oxide (Magnesium Oxide) 400 mg PO DAILY [facility] Last Admin: 08/28/17 09:00 Dose: 400 mg Metoprolol Tartrate (Lopressor) 25 mg PO HS [facility] Last Admin: 08/27/17 21:44 Dose: 25 mg Metoprolol Tartrate (Lopressor) 50 mg PO DAILY [facility] Last Admin: 08/28/17 09:00 Dose: 50 mg Naloxone HCl (Narcan) 0.1 mg IV Q2MIN PRN PRN Reason: Opiate Reversal Ondansetron HCl (Zofran) 4 mg IV Q6HP PRN PRN Reason: Nausea And Vomiting Oxycodone HCl (Roxicodone) 5 mg PO Q4HP PRN PRN Reason: PAIN LEVEL 3-6 Pantoprazole [facility]ix) [facility] Mirabegron [ (Myrbetriq] 25 Mg) 1 dose PO DAILY [facility] Last Admin: 08/28/17 09:04 Dose: Not Given Prednisone (Prednisone) 40 mg PO [facility] Last Admin: 08/28/17 09:01 Dose: 40 mg Sodium Chloride (Saline Flush) 10 ml IV Q8 [facility] Last Admin: 08/28/17 07:01 Dose: 10 ml Vitamin D (Vitamin D3) 1,000 unit PO DAILY [facility] Last Admin: 08/28/17 09:00 Dose: 1,000 unit Medical - PN: A/P - Time Spent With Patient Total time spent is greater than 50% in coordination of care (as documented) at patient's floor/unit and/or counseling patient: - Narrative A/P Narrative: A/P Acute viral/ Bacterial bronchitis:much improved, continue zpack, steroids and nebulizers Urinary tract infection-continue rocephin, microbiolgy neg, last dose tomorrow. . Shortness of breath-multifactorial, much improved. Right-sided heart failure-on IV lasix, echo pending, she has chr pulm htn, which may have worsened now. Follow up as outpatient with yves Chronic myeloid leukemia wbc elevated but improved counts, wbc is 13K today Elevated LFT: usg neg, galltone noted, free moving, asymptomatic for now, given extensive comorbidities, not sure if it should be removed given she is asymptomatic. Resume home meds as appropriate for chr medical conditions DVT hep sq Diet regular Full code. Medical - PN: Qual - Stroke Symptom Onset Unknown: No - VTE Deep Vein Thrombosis/Pulmonary Embolism Present on Admission: No
[2017-08-29] MEDS: IPRATROPIUM/ALBUTEROL 3 ML AMPUL.NEB NEB SCH ×3 (00:27→13:40)
[2017-08-29 06:36] LABS: Basophils # (Auto) 0 K/mcL (0.0-0.3); Basophils % (Auto) 0.2 % (0.0-2.0); Eosinophils # (Auto) 0 K/mcL (0.0-0.7); Eosinophils % (Auto) 0 % (0.0-7.0); Granulocytes % (Auto) 78.8 % (38.0-78.0); Lymphocytes # (Auto) 1.9 K/mcL (1.5-4.8); Lymphocytes % (Auto) 11.5 % (15.5-49.0); Mean Cell Volume 94.7 fL (80.0-100.0); Mean Corpuscular HGB Conc 32.7 g/dL (31.0-36.0); Monocytes # (Auto) 1.6 K/mcL (0.1-0.9); Monocytes % (Auto) 9.5 % (1.0-12.0); Platelet Count 221 K/mcL (140-440); RBC 4.52 M/mcL (4.00-5.20)
[2017-08-29 06:37] LABS: ALT/SGPT 34 U/l (0-40); Albumin 3.8 gm/dL (3.2-5.2); Albumin/Globulin Ratio 1.1 (1.0-2.3); Alkaline Phosphatase 137 U/L (39-117); Bilirubin,Direct 0.3 mg/dL (0.0-0.3); Blood Urea Nitrogen 28 mg/dl (8-23); Gamma Glutamyl Transpeptidase 144 U/L (5-36); Uric Acid 7.5 mg/dL (2.5-8.0)
[2017-08-29] MEDS: 0.9 % SODIUM CHLORIDE 10 ML SYRINGE IV SCH ×2 (07:26→14:48)
[2017-08-29] MEDS ORDERED: PANTOPRAZOLE 40 MG VIAL IV SCH (07:30)
[2017-08-29] MEDS: ASPIRIN 325 MG ENTERIC COATED TABLET PO SCH (09:13)
[2017-08-29] MEDS: MAGNESIUM OXIDE 400 MG TABLET PO SCH (09:13)
[2017-08-29] MEDS: VITAMIN D3 1,000 UNIT TABLET PO SCH (09:13)
[2017-08-29] MEDS: AZITHROMYCIN 250 MG TABLET PO SCH (09:13)
[2017-08-29] MEDS: predniSONE 20 MG TABLET PO SCH (09:14)
[2017-08-29] MEDS: HEPARIN 5,000 UNIT/ML VIAL SQ SCH (09:14)
[2017-08-29] MEDS: GABAPENTIN 300 MG CAPSULE PO SCH (09:14)
[2017-08-29] MEDS: FUROSEMIDE 20 MG/2 ML VIAL IV SCH (09:15)
[2017-08-29] MEDS: Mirabegron [Myrbetriq] 25 MG PO SCH (09:15)
[2017-08-29] MEDS: METOPROLOL TARTRATE 25 MG TABLET PO SCH (09:17)
[2017-08-29] MEDS: cefTRIAXone 1 GM VIAL IV SCH (09:21)
--- NOTE | 2017-08-29 12:41 | Discharge Summary ---
Medical - DS: Prov Patient information: Note initiated : 08/29/17 at 12:38 pm Service Date, if different from initiated Date: [] Patient: China Ch a 81 y/o F admitted on 08/27/17 for Cough, Labored Breathing/Rt Heart Failure, UTI. Chief Complaint: [] Date of admission: 08/27/17 20:00 Discharge date: 08/29/17 Primary care physician: Caitlyn Trivedi Admitting clinician: Enid Raymond Consults: 08/27/17 18:13 Consult to Physician [CONS] Stat Comment: Consulting Provider: Enid Raymond Reason For Exam: Physician to Consult Discharging clinician: Enid Raymond Medical - DS: Meds - Discharge Medications Prescriptions: Azithromycin [Zithromax] 250 mg PO DAILY #3 tab predniSONE [Prednisone] 40 mg PO [facility] #8 tab Active and Home Medications: Home Medications Aspirin [Ecotrin] 325 mg PO DAILY 12/10/14 [History Confirmed 08/27/17 Last Taken 08/27/17 08:00] cholecalciferol (vitamin D3) 1,000 unit capsule 1,000 unit PO QDAY cap [History Confirmed 08/27/17 Last Taken 08/27/17 08:00] magnesium oxide 400 mg capsule 400 mg PO BID 11/15/15 [History Confirmed Last Taken 08/27/17 08:00] Gabapentin [Neurontin] 600 mg PO Q12 08/27/17 [History Confirmed 08/27/17 Last Taken 08/27/17 08:00] Metoprolol Tartrate [Lopressor] 25 mg PO HS 08/27/17 [History Confirmed Last Taken 08/26/17 21:00] Metoprolol Tartrate [Lopressor] 50 mg PO DAILY 08/27/17 [History Confirmed 08/27 Last Taken 08/27/17 08:00] Mirabegron [Myrbetriq] 25 mg PO HS 08/27/17 [History Confirmed 08/27/17 Last Taken 08/26/17 21:00] Medical - DS: Hosp Hospital course: Mr. Ch is a 81 year old F - Time Spent with Patient Total time spent providing and/or coordinating discharge services: Medical - DS: Exam - Constitutional Vitals: Vital Signs Temp Pulse Pulse Pulse Resp BP Pulse Ox 08/29/17 12:00 97.9 F 97 H 14 115/71 93 08/29/17 09:26 87 16 93 08/29/17 07:28 82 16 96 08/29/17 07:18 97.1 F 78 14 117/74 96 08/29/17 04:00 98.0 F 86 14 145/79 96 08/29/17 00:29 80 16 08/29/17 00:27 80 16 08/29/17 00:00 97.8 F 81 12 116/74 95 08/28/17 20:00 97.7 F 82 12 105/67 97 08/28/17 19:04 76 16 08/28/17 17:05 97.8 F 76 16 118/65 96 08/28/17 12:45 97.9 F 82 18 112/59 96 Intake and Output 08/28/17 08/29/17 08/29/17 21:59 05:59 13:59 Intake Total 900 / 900 600 / 600 250 / 250 Output Total 425 / 425 400 / 400 800 / 800 Balance 475 / 475 200 / 200 -550 / -550 Intake: Oral 900 / 900 600 / 600 250 / 250 Output: Void Amount 425 / 425 400 / 400 800 / 800 Other: Meal Dinner Breakfast Percent of Meal Consumed 75% 100% Feeding Ability Independent Independent Stool Size Large Stool Color Brown Stool Consistency Formed Weight 204 lb Medical - DS: Data Labs on day of discharge: Labs from last 24 hours 08/29/17 08/29/17 04:15 04:15 WBC 16.5 H RBC 4.52 Hgb 14.0 Hct 42.8 MCV 94.7 MCH 31.0 MCHC 32.7 RDW 16.0 H Plt Count 221 MPV 10.4 Gran % 78.8 H Lymph % (Auto) 11.5 L [place] % (Auto) 9.5 Eos % (Auto) 0 Baso % (Auto) 0.2 Gran # 13.0 H Lymph # (Auto) 1.9 [place] # (Auto) 1.6 H Eos # (Auto) 0 Baso # (Auto) 0 Sodium 141 Potassium 4.4 Chloride 102 Carbon Dioxide 23 Anion Gap 16.0 BUN 28 H Creatinine 1.2 H GFR Calculation 42 Glucose 129 H Uric Acid 7.5 Calcium 9.5 Phosphorus 3.4 Magnesium 2.5 Total Bilirubin 0.9 Direct Bilirubin 0.3 GGT 144 H AST 29 ALT 34 Alkaline Phosphatase 137 H Lactate Dehydrogenase 272 H Total Protein 7.4 Albumin 3.8 Globulin 3.6 Albumin/Globulin Ratio 1.1 Triglycerides 101 Medical - DS: A/P - Patient/Caregiver Discharge Instructions Activity: increase activity as tolerated Diet: Low Sodium (2gm) Additional Instructions: Keep yourself well hydrated, but follow a low sodium diet, this will help keep excess fluid off your body. Follow up with your PCP in 1 week GO to the ER if worsening symptoms or fever, chest pain or any other acute concerning symptom. Take prednisone and azithromycin as prescribled. Finish the course of treatment. Continue all your medications as prescribed by your provider. You did show some improvement in your chronic neuropathy, it is not certain if this was due to steroid effect or due to use of lasix which helped take fluid from your lower extremities. At this time, I would advise to just continue treatment for bronchitis, and see if the symptoms of lower extremity heaviness/ weakness return. If your lower extremity weakness is improving with use of steroids, then it would be useful to have an evaluation done by a neurologist who specializes in peripheral neuropathy Prescriptions: Azithromycin [Zithromax] 250 mg PO DAILY #3 tab predniSONE [Prednisone] 40 mg PO [facility] #8 tab - Follow up Plan Follow up with: Caitlyn Trivedi MD [Primary Care Provider] - Disposition: Home, Self-Care Prognosis: Fair Rehab Potential: Fair I certify that the patient requires SNF services: No Overall status at discharge: patient is progressing back to baseline Medical - DS: Qual - VTE Deep Vein Thrombosis/Pulmonary Embolism Present on Admission: No
[2017-08-29] MEDS ORDERED: NITROGLYCERIN 0.4 MG TAB.SUBL SL PRN (13:05)
[2017-08-29] MEDS ORDERED: NITROGLYCERIN 0.4 MG TAB.SUBL SL ONE (13:10)
--- NOTE | 2017-08-29 13:37 | XRay Report ---
CLINICAL INFORMATION: Chest pain TECHNIQUE: AP portable upright chest x-ray COMPARISON: Previous chest x-rays dated 08/27/2017, 02/28/2017, 05/10/2016 FINDINGS: There is cardiomegaly. This is unchanged. Vascularity is within normal limits. No pulmonary edema or pulmonary congestion. No focal pulmonary parenchymal infiltrate or pleural fluid. No acute abnormality. Notable change Dental note is made of surgical clips in left axilla and previous cervicothoracic spinal fusion IMPRESSION: 1. Cardiomegaly. No pulmonary edema or pulmonary congestion 2. No focal pulmonary parenchymal infiltrate or mass 3. No interval change Interpreted and Authenticated by: Sergei Martínez 08/29/17
[2017-08-29 13:55] LABS: Basophils # (Auto) 0 K/mcL (0.0-0.3); Basophils % (Auto) 0 % (0.0-2.0); Eosinophils # (Auto) 0 K/mcL (0.0-0.7); Eosinophils % (Auto) 0 % (0.0-7.0); Granulocytes % (Auto) 91.9 % (38.0-78.0); Lymphocytes # (Auto) 0.7 K/mcL (1.5-4.8); Lymphocytes % (Auto) 4.7 % (15.5-49.0); Mean Cell Volume 93.5 fL (80.0-100.0); Mean Corpuscular HGB Conc 32.7 g/dL (31.0-36.0); Mean Corpuscular Hemoglobin 30.6 pg (26.0-34.0); Monocytes # (Auto) 0.5 K/mcL (0.1-0.9); Monocytes % (Auto) 3.4 % (1.0-12.0); Platelet Count 249 K/mcL (140-440); RBC 4.58 M/mcL (4.00-5.20); Red Cell Distribution Width 15.6 % (11.5-14.5)
[2017-08-29] MEDS ORDERED: METOPROLOL TARTRATE 5 MG/5 ML VIAL IV ONE (14:17)
[2017-08-29 14:22] LABS: Blood Urea Nitrogen 31 mg/dl (8-23)
--- NOTE | 2017-08-29 14:33 | Transfer Summary ---
Transfer Discharge Sum: Prov Patient information: Note initiated : 08/29/17 at 2:21 pm Service Date, if different from initiated Date: [] Patient: China Ch 81 y/o F admitted on 08/27/17 for Cough, Labored Breathing/Rt Heart Failure, UTI. Chief Complaint: [] Date of admission: 08/27/17 20:00 Discharge Date: 08/29/17 Primary care physician: Caitlyn Trivedi Admitting clinician: Enid Raymond Consults: 08/27/17 18:13 Consult to Physician [CONS] Stat Comment: Consulting Provider: Enid Raymond Reason For Exam: Physician to Consult Discharging clinician: Enid Raymond Receiving physician/facility: Dr Hernandez Transfer Discharge Sum: Med - Medications Active and Home Medications: Home Medications Aspirin [Ecotrin] 325 mg PO DAILY 12/10/14 [History Confirmed 08/27/17] cholecalciferol (vitamin D3) 1,000 unit capsule 1,000 unit PO QDAY cap [History Confirmed 08/27/17] magnesium oxide 400 mg capsule 400 mg PO BID 11/15/15 [History Confirmed ] Gabapentin [Neurontin] 600 mg PO Q12 08/27/17 [History Confirmed 08/27/17] Metoprolol Tartrate [Lopressor] 25 mg PO HS 08/27/17 [History Confirmed 08/27/17 ] Metoprolol Tartrate [Lopressor] 50 mg PO DAILY 08/27/17 [History Confirmed 08/27] Mirabegron [Myrbetriq] 25 mg PO HS 08/27/17 [History Confirmed 08/27/17] Azithromycin [Zithromax] 250 mg PO DAILY #3 tab 08/29/17 [Rx] predniSONE [Prednisone] 40 mg PO [facility] #8 tab 08/29/17 [Rx] Active Medications Acetaminophen (Tylenol) 650 mg PO Q6HP PRN PRN Reason: PAIN/FEVER > 101 Albuterol/Ipratropium (Duoneb) 3 ml NEB Q6HRT [facility] Last Admin: 08/29/17 13:40 Dose: Not Given Aspirin (Ecotrin) 325 mg PO DAILY [facility] Last Admin: 08/29/17 09:13 Dose: 325 mg Azithromycin (Zithromax) 250 mg PO DAILY [facility] Stop: 08/31/17 09:01 Last Admin: 08/29/17 09:13 Dose: 250 mg Ceftriaxone Sodium (Rocephin) 1 gm IV Q24H [facility] Last Admin: 08/29/17 09:21 Dose: 1 gm Furosemide (Lasix) 20 mg IV DAILY [facility] Last Admin: 08/29/17 09:15 Dose: 20 mg Gabapentin (Neurontin) 600 mg PO Q12 [facility] Last Admin: 08/29/17 09:14 Dose: 600 mg Heparin Sodium (Porcine) (Heparin) 5,000 unit SQ Q12 [facility] Last Admin: 08/29/17 09:14 Dose: 5,000 unit Magnesium Oxide (Magnesium Oxide) 400 mg PO DAILY [facility] Last Admin: 08/29/17 09:13 Dose: 400 mg Metoprolol Tartrate (Lopressor) 25 mg PO [facility] Last Admin: 08/28/17 21:29 Dose: 25 mg Metoprolol Tartrate (Lopressor) 50 mg PO DAILY [facility] Last Admin: 08/29/17 09:17 Dose: Not Given Metoprolol Tartrate (Lopressor) 2 mg IV ONCE ONE Stop: 08/29/17 14:18 Naloxone HCl (Narcan) 0.1 mg IV Q2MIN PRN PRN Reason: Opiate Reversal Nitroglycerin (Nitrostat) 0.4 mg SL Q5M PRN PRN Reason: Chest Pain Last Admin: 08/29/17 13:11 Dose: 0.4 mg Ondansetron HCl (Zofran) 4 mg IV Q6HP PRN PRN Reason: Nausea And Vomiting Last Admin: 08/29/17 13:16 Dose: 4 mg Oxycodone HCl (Roxicodone) 5 mg PO Q4HP PRN PRN Reason: PAIN LEVEL 3-6 [facility]oprazole [facility]) [facility] Admin: 08/29/17 07:26 Dose: 40 mg Mirabegron [ (Myrbetriq] 25 Mg) 1 dose PO DAILY [facility] Last Admin: 08/29/17 09:15 Dose: Not Given Pneumococcal Polyvalent Vaccine (Pneumovax 23) 0.5 ml IM .ONCE ONE Stop: 08/30/17 10:01 Prednisone (Prednisone) 40 mg PO [facility] Last Admin: 08/29/17 09:14 Dose: 40 mg Sodium Chloride (Saline Flush) 10 ml IV Q8 [facility] Last Admin: 08/29/17 07:26 Dose: 10 ml Vitamin D (Vitamin D3) 1,000 unit PO DAILY [facility] Last Admin: 08/29/17 09:13 Dose: 1,000 unit Transfer Discharge Sum: Hosp Hospital course: Ms. 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 The patient recently came from a trip in [place] and was doing well then. Since Saturday she has noticed that she has been having cough with whitish expectoration, subjective sensations of chills but no fevers. She also has noticed she has generalized aches malaise. She is very tired and fatigued, with minimal activity, The patient's symptoms have progressively gotten worse. Since her symptoms have not improved the patient presented to the emergency room for further evaluation. The patient notes that her symptoms are somewhat similar to the symptoms she had when she was diagnosed with interstitial lung disease a few years ago. She was followed by the doctor in [place] for her condition and she was given about her steroids at that time. The patient denies any other complaints. She has no headache no dizziness no changes in vision no difficulty in swallowing, no nausea no vomiting no abdominal pain no urinary complaints. In the emergency room she was worked up. Her vital signs were stable She had leukocytosis with WBC count of 14,000, hemoglobin 13.6, platelets 113, platelets was stable. Her d-dimer was mildly elevated at 1.17. UA suggestive of possible UTI with positive leukocyte esterase and some WBCs. It is liver function tests were abnormal patient had elevated bilirubin and AST ALT as well as alkaline phosphatase. trop x 2 was neg. Had a chest x-ray which was reported as negative for CHF or pneumonia. The patient underwent a CT angiogram which was negative for PE, she had few diffuse lung nodules, basilar atelectasis, the CT scan also showed that the patient might have some right-sided CHF. Abnormal LFTs the patient underwent abdominal liver ultrasound, showed mildly thickened gallbladder a mobile stone and possible passive congestive hepatomegaly. The patient was admitted to the hospital under obs status, she was treated for UTI with 3 days of IV rocephin. For her bronchitis she was treated with oral prednisone as well as azithromycin, which helped her symptoms significantly. She was on IV lasix for 3 days for possible right sided CHF. She underwent an Echo which showed normal lv rv function, mild pulm HTN and bi atrial enlargement. During the hospital stay she had one 2 episodes of upper abdominal cramping, she notes she was diagnosed with eosphageal spasms, and was told to take ppi, which she stopped taking. she was given some maloox and iv pantoprazole with good response. The patient was being discharged home today with oral steroids and zithromax, when while getting dressed she noticed she was very fatigued, and she developed sudden onset chest pain in the left side under the breast, this was associated with diaphoresis and palpitations. The patient discharge was held, she was placed on tele, oxygen started, ekg obtained promptly, EKG showed new onset st depression in the lasteral leads, she was in afib with rvr, and had st elevation in AVR, lead. Her pain abated with use of NTG sublingual, IV morphine. She is already on aspirin 325, and metoprolol. She is not on a statin as she has significant adverse events to use of these medications. The patients case, was reviewed with Dr Hernandez, who eviewed the EKg and accepted the patient for transfer for further work up. the patient is being transferred to [facility] for further c ardiac workup. Plan of care reviewed with the patient and her family. All agreeable to same. - Time Spent with Patient Total time spent providing and/or coordinating transfer services: Greater than 30 minutes Transfer Discharge Sum: Exam - Constitutional Vitals: Vital Signs Temp Pulse Pulse Pulse Resp BP Pulse Ox 08/29/17 13:38 112 H 08/29/17 13:35 99 H 18 102/69 96 08/29/17 13:20 97.9 F 108 H 116/75 97 08/29/17 13:18 123 H 119/77 98 08/29/17 13:14 112 H 145/81 97 08/29/17 13:10 172/99 08/29/17 12:00 97.9 F 97 H 14 115/71 93 08/29/17 09:26 87 16 93 08/29/17 07:28 82 16 96 08/29/17 07:18 97.1 F 78 14 117/74 96 08/29/17 04:00 98.0 F 86 14 145/79 96 08/29/17 00:29 80 16 08/29/17 00:27 80 16 08/29/17 00:00 97.8 F 81 12 116/74 95 08/28/17 20:00 97.7 F 82 12 105/67 97 08/28/17 19:04 76 16 08/28/17 17:05 97.8 F 76 16 118/65 96 Intake and Output 08/29/17 08/29/17 08/29/17 05:59 13:59 21:59 Intake Total 600 / 600 1250 / 1250 Output Total 400 / 400 1050 / 1050 Balance 200 / 200 200 / 200 Intake: Oral 600 / 600 1250 / 1250 Output: Void Amount 400 / 400 1050 / 1050 Other: Meal Lunch Percent of Meal Consumed 100% Feeding Ability Independent Stool Size Large Stool Color Brown Stool Consistency Formed Additional comments: Constitutional; Afebrile, cooperative, alert, not in distress. Eyes- No icterus, , No periorbital swelling Ears- Ext ear normal, hearing normal to conversation. Neck- Midline trachea, supple Respiratory system: Air Entry equal on both sides, No crackles or wheezing, no rhonchi. CVS- Rate rhythm regular, S1,S2 heard, no gallop, no rub. Abdomen- Soft nontender abdomen, no organomegaly, no tenderness, no guarding or rigidity, RAILROAD HAND- AOOx3, moving all extremities, no gross focal deficit noted. Transfer Discharge Sum: Data Procedures and tests throughout hospitalization: Pending Orders 08/27/17 18:13 Consult to Physician [CONS] Stat 08/27/17 18:34 Resuscitation Status Routine 08/27/17 18:40 Regular Diet 08/27/17 20:12 Case Management Referral .Routine Ambulate-Progressive PRN Condition Routine IV Insertion/Management QSHIFT Intake and Output qshiftio Notify Provider .routine Placement to Observation Routine Vital Signs Q4 Weight Monitoring QHS Acetaminophen [Tylenol] 650 mg PO Q6HP PRN Ipratropium/Albuterol [Duoneb] 3 ml NEB Q6HRT Naloxone HCl [Narcan] 0.1 mg IV Q2MIN PRN Ondansetron [Zofran] 4 mg IV Q6HP PRN oxyCODONE HCL [Roxicodone] [address] Q[address] to Adjust Diet/Supplements as Needed Routine Occupational Therapy Eval & Tx DAILY Physical Therapy Eval & Tx DAILY Incentive Spirometry Assess/Tx Q2HWA Nebulizer management .Routine Oxygen Order .Routine 08/27/17 21:00 Gabapentin [Neurontin] 600 mg PO Q12 Heparin 5,000 unit SQ Q12 Metoprolol Tartrate [Lopressor] 25 mg PO HS 08/27/17 22:00 0.9 % Sodium Chloride [Saline Flush] 10 ml IV Q8 08/28/17 08:00 [facility]SONE [facility] 08/[facility]/17 09:00 Aspirin [Ecotrin] 325 mg PO DAILY Azithromycin [Zithromax] 250 mg PO DAILY Furosemide [Lasix] 20 mg IV DAILY Magnesium Oxide 400 mg PO DAILY Metoprolol Tartrate [Lopressor] 50 mg PO DAILY Patients Own Medication 1 dose PO DAILY Vitamin D3 1,000 unit PO DAILY cefTRIAXone [Rocephin] 1 gm IV Q24H 08/29/17 07:30 Pantoprazole [Protonix] 40 mg IV QAMAC 08/29/17 12:46 Discharge Order Routine 08/29/17 13:05 Nitroglycerin [Nitrostat] 0.4 mg SL Q5M PRN 08/29/17 13:26 Basic Metabolic Panel Stat proBNP Stat 08/29/17 14:17 Metoprolol Tartrate [Lopressor] 2 mg IV ONCE ONE 08/30/17 04:00 Complete Blood Count DAILY Inpatient Panel DAILY 08/30/17 10:00 Pneumococcal 23-Tianna P-Sac Vac [Pneumovax 23] 0.5 ml IM .ONCE ONE 08/31/17 04:00 Complete Blood Count DAILY Inpatient Panel DAILY 09/01/17 04:00 Complete Blood Count DAILY Inpatient Panel DAILY 09/02/17 04:00 Complete Blood Count DAILY Inpatient Panel DAILY 09/03/17 04:00 Complete Blood Count DAILY Inpatient Panel DAILY Transfer Discharge Sum: A/P - Plan Disposition: Xfer [facility] Quality Measure Queries - VTE Deep Vein Thrombosis/Pulmonary Embolism Present on Admission: No
[2017-08-30] MEDS ORDERED: PNEUMOCOCCAL 23-VAL P-SAC VAC 0.5 ML VIAL IM ONE (10:00)
== END 2017-08-29 15:14 | disposition short-term general hospital (02) ==
LOC: ED 11:24 → MEDSUR 11:24
PROVIDERS: ADMIT Internal Medicine; ATTEND Internal Medicine